=== PATIENT | female | born 1960 | race Caucasian/White ===

== ENCOUNTER 2017-11-17 20:05 | Emergency (ER) | payer OTHER ==
[2017-11-17] MEDS ORDERED: TDAP ADULT 0.5 ML INJ (BOOSTRIX) IM ONE (20:22)
[2017-11-17] MEDS ORDERED: CEPHALEXIN 500 MG CAP PO ONE (20:51)
[2017-11-17] MEDS ORDERED: SULFAMETHOX/TMP 800/160 MG 1 TAB PO ONE (20:51)
--- NOTE | 2017-11-17 21:53 | EDPHY ---
H & P Time Seen by Provider: 11/17/17 20:17 HPI/ROS: CHIEF COMPLAINT: Right devries wound HISTORY OF PRESENT ILLNESS: Patient states that on Thursday afternoon she was walking up a couple steps with groceries in her hand. She missed a step and scraped her right devries on a wooden stair. No other injuries at that time. She cleaned the wound and put tea tree oil on it. Yesterday she noticed it was slightly more red but today significantly more red with purulent discharge and more tenderness. She denies inability to walk. She has no numbness or tingling in her ft. No fevers or chills. No red streaks. REVIEW OF SYSTEMS: Negative except per HPI. General Appearance: Alert, no distress. Eyes: Pupils equal and round no icterus Respiratory: No respiratory distress Neurological: Awake, alert, no focal deficits. Skin: Warm and dry, no rashes. Approximately 8 cm lesion with deep erythema surrounding a central wound. Wound has purulent discharge although no abscess. No necrosis. No crepitus. Musculoskeletal: Neck is supple nontender. Extremities are symmetrical, full range of motion, no edema. Psychiatric: Patient is oriented X 3, there is no agitation. Medical/surgical history: Depression Social history: No tobacco. 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 Smoking Status: Former smoker Constitutional: Initial Vital Signs Temperature (C) 36.9 C 11/17/17 20:18 Heart Rate 93 11/17/17 20:18 Respiratory Rate 18 11/17/17 20:18 Blood Pressure 162/99 H 11/17/17 20:18 O2 Sat (%) 96 11/17/17 20:18 O2 Delivery Mode Room Air Allergies/Adverse Reactions: ephedrine [Ephedrine] Allergy (Intermediate, Verified 02/24/16 10:28) SHAKING caffeine [Caffeine] Allergy (Mild, Verified 02/24/16 10:28) TIGHTNESS OF MUSCLES Home Medications: Medication Instructions Recorded Bupropion HCl 04/02/15 Fluoxetine 04/02/15 Cephalexin [Keflex (*)] 500 mg PO QID #28 cap 11/17/17 Sulfamethox/Tmp 800/160 mg 1 tab PO BID #14 tab 11/17/17 [Bactrim Ds] Medical Decision Making ED Course/Re-evaluation: Wound cleaned well, scrubbed, photos taken as will have patient return for wound re-evaluation . Differential Diagnosis: Differential diagnosis includes but is not limited to traumatic wound infection , abscess, cellulitis, necrotizing fasciitis. Angry appearing wound without systemic symptoms in a reliable healthy host. Will initiate oral antibiotics, 1st dose given in the emergency department. Strict wound care discussed including rest, elevation, warm packs and continued oral antibiotics at home. I asked the patient to return to this emergency department or see her primary care physician on for re-evaluation. I also strongly recommended returning sooner if she develops any concerning new symptoms such as fever, chills, body aches or worsening of the wound locally. Stable for outpatient care. - Data Points Medications Given: Discontinued Medications Cephalexin HCl (Keflex) 500 mg PO EDNOW ONE PRN Reason: Protocol Stop: 11/17/17 20:52 Last Admin: 11/17/17 21:09 Dose: 500 mg Diphtheria/Tetanus/Acell Pertussis (Boostrix) 0.5 ml IM .ONCE ONE Stop: 11/17/17 20:23 Last Admin: 11/17/17 20:26 Dose: 0.5 ml Trimethoprim/Sulfamethoxazole (Bactrim Ds) 1 ea PO EDNOW ONE PRN Reason: Protocol Stop: 11/17/17 20:52 Last Admin: 11/17/17 21:08 Dose: 1 ea Departure - Departure Disposition: Home, Routine, Self-Care Clinical Impression: Wound infection, posttraumatic Condition: Fair Instructions: Wound Infection (ED) Additional Instructions: Keep wound clean, apply antibiotic ointment, cover with bandage. Elevate and use warm packs over the next 24-48 hours. Return to the emergency department without fail on or see your primary care physician for wound check. Take antibiotics as prescribed until complete. Referrals: Christin Carrington MD [Primary Care Provider] - As per Instructions Prescriptions: Cephalexin [Keflex (*)] 500 mg PO QID #28 cap Sulfamethox/Tmp 800/160 mg [Bactrim Ds] 1 tab PO BID #14 tab
[2017-11-17 22:14] VITALS: BP 160/79
== END 2017-11-17 22:10 | disposition home or self-care (01) ==
LOC: CED 20:05
DX: L08.89 Other specified local infections of the skin and subcutaneous tissue (principal); Z23 Encounter for immunization; Z87.891 Personal history of nicotine dependence

== ENCOUNTER → 2018-02-01 | Outpatient (CLI) | payer OTHER | LOC: CIMAGING 09:12 | PROVIDERS: ATTEND Internal Medicine | DX: S22.42XA Multiple fractures of ribs, left side, initial encounter for closed fracture (principal); S42.112A Displaced fracture of body of scapula, left shoulder, initial encounter for closed fracture; M19.012 Primary osteoarthritis, left shoulder; M25.812 Other specified joint disorders, left shoulder | CPT/HCPCS: 73030-PO ==